=== PATIENT | female | born 1990 | race Two or more races ===

== ENCOUNTER 2022-11-14 19:25 | Emergency (ER) | payer MEDICAID, SELFPAY ==
[2022-11-14 19:30] VITALS: BP 121/73; PULSE 77; RESP 16; TEMP 37.3; O2SAT 100; BMI 27.5
--- NOTE | 2022-11-14 19:37 | ED.DENTAL1 ---
HPI - Dental/Oral General Chief complaint: Dental/Oral Stated complaint: DENTAL Time Seen by Provider: 11/14/22 19:34 Source: patient Mode of arrival: walk-in Limitations: no limitations History of Present Illness HPI Narrative: patient is a 31-year-old female who presents to the emergency department for increasing pain along the left jaw for the last several days. She states she has two broken teeth, tooth #12 and tooth #20. She filled tooth #20 with dental paste last night. She has not noticed any drainage from the teeth. She is regular smoker. She is not concerned for . She reports pain radiating into the left side of the jaw. She states she has had subjective fever and chills over the last two days. Related Data Home Medications Medication Instructions Recorded Confirmed dextroamphetamine-amphetamine 20 20 mg PO DAILY 11/14/22 11/14/22 mg tablet (Adderall) Previous Rx's Medication Instructions Recorded amoxicillin 500 mg capsule 500 mg PO TID 10 days #30 caps 11/14/22 ketorolac 10 mg tablet 10 mg PO TID PRN pain #10 tabs 11/14/22 Allergies Allergy/AdvReac Type Severity Reaction Status Date / Time No Known Drug Allergies Allergy Verified 11/14/22 19:33 Review of Systems ROS Constitutional Reports: fever and chills Ears, nose, mouth, and throat Denies: throat pain or neck pain Cardiovascular Denies: chest pain Respiratory Denies: shortness of breath or cough Gastrointestinal Denies: nausea or vomiting Musculoskeletal Denies: back pain or neck pain Integumentary/Breast Denies: rash Neurological Reports: headache PFSH PFSH Social History Smoking status: Former smoker Exam Narrative Exam Narrative: Gen.: Awake, alert, in no distress Head: Normocephalic, atraumatic ENT: Moist mucous membranes, dental caries of tooth #13 and tooth #20. White dental paste noted on the surface of tooth #20. No visible abscess, no trismus or drooling. No redness or swelling under the tongue. No mandibular maxillary swelling noted. Clear speech. Respiratory: No respiratory distress Extremities: Moves extremities equally, no injuries noted Psych: Normal mood and affect Neuro: No focal neuro deficit Skin: Warm, dry, intact Constitutional Vital Signs, click to edit/add: Last Vital Signs Temp 99.2 F 11/14/22 19:30 Pulse 77 11/14/22 19:30 Resp 16 11/14/22 19:30 BP 121/73 H 11/14/22 19:30 Pulse Ox 100 11/14/22 19:30 O2 Del Method Room Air 11/14/22 19:30 Course Vital Signs Vital signs: Vital Signs Temperature 99.2 F 11/14/22 19:30 Pulse Rate 77 11/14/22 19:30 Respiratory Rate 16 11/14/22 19:30 Blood Pressure 121/73 H 11/14/22 19:30 Pulse Oximetry 100 11/14/22 19:30 Oxygen Delivery Method Room Air 11/14/22 19:30 Temperature 99.2 F 11/14/22 19:30 Pulse Rate 77 11/14/22 19:30 Respiratory Rate 16 11/14/22 19:30 Blood Pressure 121/73 H 11/14/22 19:30 Pulse Oximetry 100 11/14/22 19:30 Oxygen Delivery Method Room Air 11/14/22 19:30 MDM - Dental/Oral MDM Narrative Medical decision making narrative: exam is consistent with dental caries and probable early infection by history. Patient started on amoxicillin, NSAIDs and topical analgesia. She is referred to a dental clinic. She states she recently moved from [place] so she has had difficulty getting into an office. Return to the Emergency Room if symptoms change or worsen. Medical Records Attestation: I reviewed the patient's medical records. Discharge Plan Discharge Chief Complaint: Dental/Oral Clinical Impression: Dental caries, Toothache Patient Disposition: Home, Self-Care Time of Disposition Decision: 19:43 Condition: Good Prescriptions / Home Meds: New amoxicillin 500 mg capsule 500 mg PO TID 10 Days Qty: 30 0RF ketorolac 10 mg tablet 10 mg PO TID PRN (Reason: pain) Qty: 10 0RF No Action dextroamphetamine-amphetamine [Adderall] 20 mg tablet 20 mg PO DAILY Instructions: Toothache (ED) Additional Instructions: [facility]: For an adult appointment (ages 18+), call [phone]. Stand Alone Forms: Portal Instructions Referrals: Physician,Non-Staff, MD [Primary Care Provider] - 1 week Discharge Date/Time: 11/14/22 20:24
[2022-11-14] MEDS: AMOXICILLIN 500 MG CAPSULE PO (20:08)
[2022-11-14] MEDS: BENZOCAINE 30 ML, lidocaine HCL 15 ML MM (20:08)
== END 2022-11-14 20:24 | disposition home or self-care (01) ==
PROVIDERS: Emergency Provider Emergency Medicine
DX: K02.9 Dental caries, unspecified (principal); K08.89 Other specified disorders of teeth and supporting structures; F17.210 Nicotine dependence, cigarettes, uncomplicated
CPT/HCPCS: 99283

== ENCOUNTER 2022-12-15 14:22 | Outpatient (OUT) | payer MEDICAID, SELFPAY ==
[2022-12-15 15:27] LABS: Basophils Absolute Auto 0.1 10^3/uL (0.0-0.1); Basophils Percent Auto 0.9 % (0.2-2.0); Eosinophils Absolute Auto 0.3 10^3/uL (0.0-0.7); Eosinophils Percent Auto 4.1 % (0.9-7.0); Hematocrit 40.4 % (36.0-48.0); Hemoglobin 13.2 g/dL (12.0-16.0); Immature Granulocytes Abs Auto 0.03 10^3/uL (0.00-0.03); Immature Granulocytes Pct Auto 0.4 % (0.0-0.5); Lymphocytes Absolute Auto 2.2 10^3/uL (1.2-3.8); Lymphocytes Percent Auto 27.4 % (20.5-60.0); Mean Corpuscular HGB Conc 32.7 g/dL (29.9-35.2); Mean Corpuscular Hemoglobin 31.4 pg (26.7-34.0); Mean Platelet Volume 10.4 fL (9.5-13.5); Monocytes Absolute Auto 0.6 10^3/uL (0.3-0.8); Monocytes Percent Auto 7.6 % (1.7-12.0); Neutrophils Absolute Auto 4.8 10^3/uL (1.4-6.5); Neutrophils Percent Auto 59.6 % (43.0-75.0); Platelet Count 258 10^3/uL (150-450); Red Blood Count 4.21 10^6/uL (4.20-5.40); Red Cell Distribution Width 12.1 % (11.0-15.0)
[2022-12-15 16:06] LABS: Alanine Aminotransferase 25 U/L (14-59); Albumin Globulin Ratio 0.9; Albumin Level 3.8 g/dL (3.4-5.0); Alkaline Phosphatase 61 U/L (46-116); Aspartate Amino Transferase 19 U/L (15-37); BUN Creatinine Ratio 15.3; Bilirubin Direct 0.1 mg/dL (0.0-0.2); Bilirubin Total 0.4 mg/dL (0.2-1.0); Carbon Dioxide 28.2 mmol/L (21.0-32.0); Chloride 103 mmol/L (98-107); Estimated GFR (African America >60 (>=60); Estimated GFR (Non-African Ame >60 (>=60); Glucose 94 mg/dL (74-106); Potassium 4.2 mmol/L (3.5-5.1); Sodium 137 mmol/L (136-145); Total Protein 7.8 g/dL (6.4-8.2)
[2022-12-17 06:09] LABS: HIV Ab/p24 Ag Screen Non Reactive (Non Reactive)
== END 2022-12-15 14:23 | disposition home or self-care (01) ==
DX: F11.20 Opioid dependence, uncomplicated (principal)
CPT/HCPCS: 36415; 80053; 80076; 85025; 87389

== ENCOUNTER 2022-12-15 14:29 | Outpatient (OUT) | payer MEDICAID, SELFPAY ==
[2022-12-15 15:59] LABS: Bilirubin Urine NEGATIVE (NEGATIVE); Blood Urine NEGATIVE (NEGATIVE); Clarity Urine CLEAR (CLEAR); Color Urine YELLOW (YELLOW); Glucose Urine UA NEGATIVE (NEGATIVE); Ketones Urine NEGATIVE (NEGATIVE); Leukocyte Esterase Urine NEGATIVE (NEGATIVE); Nitrite Urine POSITIVE (NEGATIVE); Protein Urine NEGATIVE (NEG/TRACE); Specific Gravity Urine 1.025 (1.005-1.025); Urobilinogen Urine 0.2 EU/dL (0.2-1.0)
[2022-12-15 16:00] LABS: Urine Microscopic Indicated YES
[2022-12-15 16:12] LABS: Bacteria Urine LARGE #/HPF (NONE SEEN); Crystals Seen? None Seen #/HPF (None Seen); Mucus Urine TRACE (NONE SEEN); RBC Urine 0-2 #/HPF (0-2); Squamous Epithelial Cell Urine FEW #/LPF (NONE/RARE); WBC Urine 0-2 #/HPF (NONE SEEN)
[2022-12-15 16:13] LABS: Cast Seen? NONE SEEN #/LPF (NONE SEEN); Urine Culture Indicated YES
[2022-12-15 16:16] LABS: Chol HDL Ratio 2.8; Cholesterol 132 mg/dL (<=200); HDL Cholesterol 48 mg/dL (40-60); LDL Cholesterol Calculated 69.2 mg/dL; Thyroid Stimulating Hormone 0.871 uIU/mL (0.358-3.740); Triglycerides 74 mg/dL (<=150); VLDL CHOLESTEROL 14.8 mg/dL
== END 2022-12-15 14:30 | disposition home or self-care (01) ==
LOC: LAB 14:30
DX: Z00.00 Encounter for general adult medical examination without abnormal findings (principal); E55.9 Vitamin D deficiency, unspecified; F32.9 Major depressive disorder, single episode, unspecified
CPT/HCPCS: 36415; 80053; 80061; 80076; 81001; 81003; 82306; 82607; 82746; 84443; 85025; 87086; 87150; 87186; 87389

== ENCOUNTER 2022-12-15 14:33 | Outpatient (RCR) | payer MEDICAID, SELFPAY | END 2023-01-06 17:49 | disposition home or self-care (01) | LOC: LAB 14:33 | DX: F11.20 Opioid dependence, uncomplicated (principal) | CPT/HCPCS: 36415; 80053; 80061; 80076; 80299; 80307; 80348; 81001; 81003; 82306; 82607; 82746; 84443; 85025; 87086; 87150; 87186; 87389 ==

== ENCOUNTER 2023-01-09 23:18 | Emergency (ER) | payer MEDICAID, SELFPAY ==
[2023-01-09 23:23] VITALS: BP 127/64; PULSE 69; RESP 18; TEMP 36.6; O2SAT 97; BMI 27.1
--- NOTE | 2023-01-09 23:50 | ED.DENTAL1 ---
HPI - Dental/Oral General Chief complaint: Dental/Oral Stated complaint: DENTAL PAIN Time Seen by Provider: 01/09/23 23:50 Source: patient Mode of arrival: walk-in Limitations: no limitations History of Present Illness HPI Narrative: Patient presents to emergency department complaining of dental pain. Patient states she has an infection to tooth #14. She states she has noted some swelling and pain that started yesterday. Symptoms have worsened since yesterday. She took Tylenol and Motrin 2 hours ago has not had any relief. She's had dental caries and has seen her dentist but not for this particular tooth. She denies any fever, chills, throat swelling, difficulty swallowing. She denies any headache. She denies any upper respiratory infection symptoms. She denies any chest pain, shortness of breath. Related Data Home Medications Medication Instructions Recorded Confirmed dextroamphetamine-amphetamine 20 20 mg PO DAILY 11/14/22 01/09/23 mg tablet (Adderall) buprenorphine 8 mg-naloxone 2 mg 1 tab sublingual DAILY 01/09/23 01/09/23 sublingual tablet lorazepam 1 mg tablet 1 mg PO DAILY PRN anxiety 01/09/23 01/09/23 Previous Rx's Medication Instructions Recorded clindamycin HCl 300 mg capsule 300 mg PO Q8H 10 days #30 caps 01/10/23 ibuprofen 800 mg tablet 800 mg PO Q8H PRN pain #20 tabs 01/10/23 Allergies Allergy/AdvReac Type Severity Reaction Status Date / Time No Known Drug Allergies Allergy Verified 01/09/23 23:29 Review of Systems ROS Status of ROS 10 or more systems reviewed and unremarkable except as noted in history and below [facility] Social History Smoking status: Current every day smoker Exam Narrative Exam Narrative: General: The patient is comfortable, alert and oriented x3, well appearing, non toxic in no apparent distress. Head: Atraumatic and normocephalic. Eyes: Normal conjunctiva ENT: The oropharynx is normal. No pharyngeal erythema, uvular edema, tonsillar exudates, asymmetry or trismus. Uvula is midline. Mouth is normal to inspection with the exception of a pain on percussion of the tooth #14 and evidence of dental caries. There is Small amount of left maxilla facial asymmetry, no drainable abscess. Floor of the mouth is soft. No tenderness in the submental or submandibular space. No tongue elevation or deviation. Airway is patent. Neck: The neck demonstrates normal range of motion. No meningeals signs are present. No stridor. No masses or lymphandenopathy noted. Respiratory: No acute distress, lungs are clear to auscultation, no wheezing, rhonchi, or rales noted. No stridor or retractions are noted. Cardiovascular: Regular rate and rhythm Skin: The skin exam shows no evidence of rashes Neuro: Alert and oriented x4, normal speech Lymphatic: No cervical lymphadenopathy Constitutional Vital Signs, click to edit/add: Last Vital Signs Temp 98 F 01/09/23 23:23 Pulse 69 01/09/23 23:23 Resp 18 01/09/23 23:23 BP 127/64 01/09/23 23:23 Pulse Ox 97 01/09/23 23:23 O2 Del Method Room Air 01/09/23 23:23 Course Vital Signs Vital signs: Vital Signs Temperature 98 F 01/09/23 23:23 Pulse Rate 69 01/09/23 23:23 Respiratory Rate 18 01/09/23 23:23 Blood Pressure 127/64 01/09/23 23:23 Pulse Oximetry 97 01/09/23 23:23 Oxygen Delivery Method Room Air 01/09/23 23:23 Temperature 98 F 01/09/23 23:23 Pulse Rate 69 01/09/23 23:23 Respiratory Rate 18 01/09/23 23:23 Blood Pressure 127/64 01/09/23 23:23 Pulse Oximetry 97 01/09/23 23:23 Oxygen Delivery Method Room Air 01/09/23 23:23 MDM - Dental/Oral MDM Narrative Medical decision making narrative: Patient started on clindamycin, and analgesics. Patient is nontoxic, will follow up with dentist. No additional indication for emergent studies at this time. I answered all questions. Discussed discharge instructions including standard anticipatory guidance and what should prompt a return to the emergency department, including if they get worse are not getting better or develops any new or concerning symptoms. I've given them specific time frame in which to follow-up, and who to follow-up with. The patient demonstrates understanding. Patient is nontoxic and stable for discharge with outpatient follow-up. This note was created with the assistance of a speech recognition program. Although the intention is to generate documents that actually reflects the content of the visit, no guarantees can be provided that every mistake has been identified and corrected by editing. Differential Diagnosis Differential diagnosis: Likely gingival abscess, dental caries, toothache and dental abscess Discharge Plan Discharge Chief Complaint: Dental/Oral Clinical Impression: Dental abscess Patient Disposition: Home, Self-Care Time of Disposition Decision: 00:13 Condition: Good Mode of Transportation: Private Vehicle Prescriptions / Home Meds: New clindamycin HCl 300 mg capsule 300 mg PO Q8H 10 Days Qty: 30 0RF ibuprofen 800 mg tablet 800 mg PO Q8H PRN (Reason: pain) Qty: 20 0RF No Action dextroamphetamine-amphetamine [Adderall] 20 mg tablet 20 mg PO DAILY lorazepam 1 mg tablet 1 mg PO DAILY PRN (Reason: anxiety) buprenorphine-naloxone 8-2 mg tablet, sublingual 1 tab SUBLINGUAL DAILY Instructions: Dental Abscess (ED) Additional Instructions: Follow-up with dentist Tuesday. Stand Alone Forms: Portal Instructions Discharge Date/Time: 01/10/23 00:50
[2023-01-10] MEDS: BENZOCAINE 30 ML, lidocaine HCL 15 ML MM (00:42)
[2023-01-10] MEDS: CLINDAMYCIN HCL 150 MG CAPSULE 450 MG PO (00:42)
== END 2023-01-10 00:50 | disposition home or self-care (01) ==
PROVIDERS: Emergency Provider Emergency Medicine
DX: K04.7 Periapical abscess without sinus (principal); Z79.899 Other long term (current) drug therapy; F17.210 Nicotine dependence, cigarettes, uncomplicated
CPT/HCPCS: 99283

== ENCOUNTER 2023-01-13 12:37 | Outpatient (RCR) | payer MEDICAID, SELFPAY ==
[2023-07-27 14:09] LABS: Miscellaneous Test NEGATIVE
== END 2023-02-07 08:31 | disposition home or self-care (01) ==
LOC: LAB 12:37
DX: F11.20 Opioid dependence, uncomplicated (principal)
CPT/HCPCS: 36415; 80299; 80307; 80348

== ENCOUNTER 2023-02-23 15:55 | Outpatient (OUT) | payer MEDICAID, SELFPAY | END 2023-02-23 15:56 | disposition home or self-care (01) | LOC: LAB 15:58 | DX: F11.20 Opioid dependence, uncomplicated (principal) | CPT/HCPCS: 36415; 80299; 80307; 80348 ==

== ENCOUNTER 2023-04-20 16:32 | Outpatient (OUT) | payer MEDICAID, SELFPAY | END 2023-04-20 16:33 | disposition home or self-care (01) | DX: F11.20 Opioid dependence, uncomplicated (principal) | CPT/HCPCS: 36415; 80299; 80307; 80348 ==

== ENCOUNTER 2023-06-21 12:19 | Outpatient (OUT) | payer MEDICAID, SELFPAY ==
[2023-06-21 13:50] LABS: Amphetamine Screen Urine NEGATIVE (NEGATIVE); Barbiturates Screen Urine NEGATIVE (NEGATIVE); Benzodiazepines Screen Urine NEGATIVE (NEGATIVE); Buprenorphine Screen Urine POSITIVE (NEGATIVE); Cannabinoid Screen Urine NEGATIVE (NEGATIVE); Cocaine Screen Urine NEGATIVE (NEGATIVE); Methadone Screen Urine NEGATIVE (NEGATIVE); Methamphetamines Screen Urine NEGATIVE (NEGATIVE); Opiate Screen Urine NEGATIVE (NEGATIVE); Oxycodone Screen Urine NEGATIVE (NEGATIVE); Phencyclidine Screen Urine NEGATIVE (NEGATIVE); Tricyclic Antidepressant Urine NEGATIVE (NEGATIVE)
== END 2023-06-21 12:20 | disposition home or self-care (01) ==
LOC: LAB 12:20
DX: F11.20 Opioid dependence, uncomplicated (principal)
CPT/HCPCS: 36415; 80307; 80375

== ENCOUNTER 2023-07-29 12:12 | Outpatient (OUT) | payer SELFPAY ==
[2023-07-29 13:45] LABS: Cannabinoid Screen Urine NEGATIVE (NEGATIVE); Phencyclidine Screen Urine NEGATIVE (NEGATIVE)
[2023-07-29 13:52] LABS: Amphetamine Screen Urine POSITIVE (NEGATIVE); Barbiturates Screen Urine NEGATIVE (NEGATIVE); Benzodiazepines Screen Urine POSITIVE (NEGATIVE); Buprenorphine Screen Urine POSITIVE (NEGATIVE); Cocaine Screen Urine NEGATIVE (NEGATIVE); Methadone Screen Urine NEGATIVE (NEGATIVE); Methamphetamines Screen Urine NEGATIVE (NEGATIVE); Opiate Screen Urine NEGATIVE (NEGATIVE); Oxycodone Screen Urine NEGATIVE (NEGATIVE); Tricyclic Antidepressant Urine NEGATIVE (NEGATIVE)
== END 2023-07-29 12:13 | disposition home or self-care (01) ==
DX: F11.20 Opioid dependence, uncomplicated (principal)
CPT/HCPCS: 36415; 80307; 80355; 80375

== ENCOUNTER 2023-09-25 20:05 | Emergency (ER) | payer SELFPAY ==
[2023-09-25 20:10] VITALS: BP 141/95; PULSE 82; TEMP 36.4; O2SAT 98; BMI 28.3
--- NOTE | 2023-09-25 20:21 | PC.NURSE ---
Pt has mild splotchy red rash on bilat upper arms and on back of neck. Airway remains intact.
--- NOTE | 2023-09-25 20:33 | ED.SKABFB1 ---
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 She loss her balance and fell back 5 days ago sustaining superficial cut to left palm. she has experienced episodes of itching on and off ever since. Tdaoy she developed swelling of both hands and redness of her arms. Took Benadryl and the swelling has decreased significantly and the redness has resolved. Still feels her hands are a little puffy but it is not apparent to me. Denies shortness of breath. mild pain of her hand. not sure of when she had her last tetanus Related Data Home Medications ?Medication ?Instructions ?Recorded ?Confirmed dextroamphetamine-amphetamine 20 20 mg PO DAILY 11/14/22 01/09/23 mg tablet (Adderall) buprenorphine 8 mg-naloxone 2 mg 1 tab sublingual DAILY 01/09/23 01/09/23 sublingual tablet lorazepam 1 mg tablet 1 mg PO DAILY PRN anxiety 01/09/23 01/09/23 Previous Rx's ?Medication ?Instructions ?Recorded clindamycin HCl 300 mg capsule 300 mg PO Q8H 10 days #30 caps 01/10/23 ibuprofen 800 mg tablet 800 mg PO Q8H PRN pain #20 tabs 01/10/23 Allergies Allergy/AdvReac Type Severity Reaction Status Date / Time No Known Drug Allergies Allergy Verified 09/25/23 20:15 Review of Systems ROS Status of ROS 10 or more systems reviewed and unremarkable except as noted in history and below PFSH PFS Social History Smoking status: Current every day smoker Exam Constitutional Vital Signs, click to edit/add: Last Vital Signs Temp 97.6 F 09/25/23 20:10 Pulse 82 09/25/23 20:10 Resp 18 09/25/23 20:10 BP 141/95 H 09/25/23 20:10 Pulse Ox 98 09/25/23 20:10 O2 Del Method Room Air 09/25/23 20:10 Common normals: no apparent distress, average body habitus, oriented x3, no limitations, healthy appearing, alert and well nourished [facility] Common normals: normocephalic and head/scalp atraumatic Eye Common normals: EOMs intact bilaterally and conjunctivae normal Respiratory Common normals: normal respiratory effort, no retractions, no use of accessory muscles and clear to auscultation bilaterally Cardio Common normals: regular rate, regular rhythm, S1 normal heart sound and S2 normal heart sound Extremity Other: superficial cut palm left hand. no surrounding erythema, drainage or red streaks skin is clear. No obvious rash Neuro Common normals: oriented x3, CN's II-XII intact bilaterally, moves all extremities and no focal motor deficits Psych Appearance: grossly normal Course Vital Signs Vital signs: Vital Signs Temperature 97.6 F 09/25/23 20:10 Pulse Rate 82 09/25/23 20:10 Respiratory Rate 18 09/25/23 20:10 Blood Pressure 141/95 H 09/25/23 20:10 Pulse Oximetry 98 09/25/23 20:10 Oxygen Delivery Method Room Air 09/25/23 20:10 Temperature 97.6 F 09/25/23 20:10 Pulse Rate 82 09/25/23 20:10 Respiratory Rate 18 09/25/23 20:10 Blood Pressure 141/95 H 09/25/23 20:10 Pulse Oximetry 98 09/25/23 20:10 Oxygen Delivery Method Room Air 09/25/23 20:10 MDM - Skin/Abscess/Foreign Bdy MDM Narrative Medical decision making narrative: patient sustained a superficial cut 5 days ago from a nail. Wound appears to be healing well. No sign of infection. Her history is c/w allergic reaction. She describes itching and development of swelling of her hands. She took benadryl and the swelling has resolved. Discussed plan of treatment for an allergic reaction. Given dose of prednisone and a tetanus in the department and discharged home Discharge Plan Discharge Stand Alone Forms: Portal Instructions Chief Complaint: Skin/Abscess/Foreign Body Clinical Impression: Hand laceration, Allergic reaction Patient Disposition: Home, Self-Care Prescriptions / Home Meds: No Action dextroamphetamine-amphetamine [Adderall] 20 mg tablet 20 mg PO DAILY lorazepam 1 mg tablet 1 mg PO DAILY PRN (Reason: anxiety) buprenorphine-naloxone 8-2 mg tablet, sublingual 1 tab SUBLINGUAL DAILY clindamycin HCl 300 mg capsule 300 mg PO Q8H 10 Days Qty: 30 0RF ibuprofen 800 mg tablet 800 mg PO Q8H PRN (Reason: pain) Qty: 20 0RF Print Language: Senegalese Instructions: General Allergic Reaction (ED), Laceration Without Closure (ED) Additional Instructions: continue with Benadryl. follow up with your doctor in 2-3 days for recheck Referrals: Physician,Non-Staff, MD [Primary Care Provider] - 1 week
[2023-09-25] MEDS: PREDNISONE 20 MG TABLET 60 MG PO (20:44)
[2023-09-25] MEDS: ADACEL DIPH,PERTUSS(ACELL),TET VAC/PF 0.5 ML ADULT SYRINGE IM (20:44)
[2023-09-25 20:52] VITALS: BP 135/79; PULSE 65; O2SAT 97
== END 2023-09-25 20:52 | disposition home or self-care (01) ==
PROVIDERS: Emergency Provider Internal Medicine
DX: S61.412A Laceration without foreign body of left hand, initial encounter (principal); T78.40XA Allergy, unspecified, initial encounter; Z23 Encounter for immunization; W45.0XXA Nail entering through skin, initial encounter; Z79.899 Other long term (current) drug therapy; F17.210 Nicotine dependence, cigarettes, uncomplicated
CPT/HCPCS: 90471; 90715; 99283

== ENCOUNTER 2023-10-04 16:53 | Outpatient (OUT) | payer SELFPAY ==
[2023-10-04 17:29] LABS: Amphetamine Screen Urine POSITIVE (NEGATIVE); Barbiturates Screen Urine NEGATIVE (NEGATIVE); Benzodiazepines Screen Urine POSITIVE (NEGATIVE); Buprenorphine Screen Urine POSITIVE (NEGATIVE); Cannabinoid Screen Urine NEGATIVE (NEGATIVE); Cocaine Screen Urine NEGATIVE (NEGATIVE); Methadone Screen Urine NEGATIVE (NEGATIVE); Methamphetamines Screen Urine NEGATIVE (NEGATIVE); Opiate Screen Urine NEGATIVE (NEGATIVE); Oxycodone Screen Urine NEGATIVE (NEGATIVE); Phencyclidine Screen Urine NEGATIVE (NEGATIVE); Tricyclic Antidepressant Urine NEGATIVE (NEGATIVE)
== END 2023-10-04 16:54 | disposition home or self-care (01) ==
DX: F11.20 Opioid dependence, uncomplicated (principal)
CPT/HCPCS: 36415; 80307; 80375

== ENCOUNTER 2023-11-29 15:51 | Outpatient (OUT) | payer BC, SELFPAY ==
[2023-11-29 17:34] LABS: Amphetamine Screen Urine POSITIVE (NEGATIVE); Barbiturates Screen Urine NEGATIVE (NEGATIVE); Benzodiazepines Screen Urine POSITIVE (NEGATIVE); Buprenorphine Screen Urine POSITIVE (NEGATIVE); Cannabinoid Screen Urine NEGATIVE (NEGATIVE); Cocaine Screen Urine NEGATIVE (NEGATIVE); Methadone Screen Urine NEGATIVE (NEGATIVE); Methamphetamines Screen Urine NEGATIVE (NEGATIVE); Opiate Screen Urine NEGATIVE (NEGATIVE); Oxycodone Screen Urine NEGATIVE (NEGATIVE); Phencyclidine Screen Urine NEGATIVE (NEGATIVE); Tricyclic Antidepressant Urine NEGATIVE (NEGATIVE)
== END 2023-11-29 15:52 | disposition home or self-care (01) ==
LOC: LAB 15:54
DX: F11.20 Opioid dependence, uncomplicated (principal)
CPT/HCPCS: 36415; 80307; 80375

== ENCOUNTER 2023-12-03 17:06 | Emergency (ER) | payer BC, SELFPAY ==
[2023-12-03 17:12] VITALS: BP 148/83; PULSE 88; TEMP 36.9; O2SAT 98; BMI 28.3
--- OUTSIDE RECORDS SUMMARY | 2023-12-03 17:16 | XMS_ITS ---
Patient Summarization (C-CDA 2.1 CCD) Created on: December 03, 2023 Marleni Smith : 1990 Sex: Female Author Organization Sample organization Encounters Encounter Date Encounter Type Care Provider Facility Start: 12-02-2023 End: 12-02-2023 ambulatory [facility] Work Phone: Start: 12-02-2023 End: 12-02-2023 Patient encounter procedure [facility] Work Phone: Medications Current Medications Medication Drug Class(es) Dates Sig (Normalized) Sig (Original) ALPRAZolam 0.5 mg oral tablet (1 source) Benzodiazepine Start: 12-02-2023 Alprazolam Active MG PO December 02, 2023 12:00am amphetamine aspartate 5 mg / amphetamine sulfate 5 mg / dextroamphetamine saccharate 5 mg / dextroamphetamine sulfate 5 mg oral tablet (1 source) Central Nervous System Stimulant Start: 12-02-2023 Dextroamphetami ne-Amphetamine Active PO December 02, 2023 12:00am buprenorphine 8 mg / naloxone 2 mg sublingual tablet (1 source) Partial Opioid Agonist, Opioid Antagonist Start: 12-02-2023 Buprenorphine-N aloxone Active TAB SUBLINGUAL December 02, 2023 12:00am predniSONE 10 mg oral tablet (1 source) Start: 12-02-2023 Prednisone Active 10 MG PO As Directed 21 December 02, 2023 12:00am 4 tablets x 3 days, 2 tablets x 3 days, 1 tablet x 3 days Payers Date Payer Category Payer Policy ID Unknown Mirtha MOTA/VLAD [id number] Social History Date Type Detail Facility Start: 1990 Sex Assigned At Female F [facility] Tobacco smoking stat NHIS Unknown if ever smoked [facility] Work Phone: Vital Signs Date Time Vital Sign Value Performing Clinician Faci lity 12-02-2023 16:34-0400 Body height 162.56 cm [facility] 12-02-2023 16:34-0400 Body mass index (BMI) [Ratio] 28.4 kg/m2 [facility] 12-02-2023 16:34-0400 Body temperature 98.2 [degF] [facility] 12-02-2023 16:34-0400 Body weight 75.06 kg [facility] 12-02-2023 16:34-0400 Diastolic blood pressure 79 mm[Hg] [facility] 12-02-2023 16:34-0400 Heart rate 73 /min [facility] 12-02-2023 16:34-0400 Respiratory rate 18 /min [facility] 12-02-2023 16:34-0400 SaO2% (BldA) [Mass fraction] 99 % [facility] 12-02-2023 16:34-0400 Systolic blood pressure 122 mm[Hg] [facility] Evaluation note Note Date & Type Note Facility Evaluation note No assessment information availa [facility] Work Phone: Chief Complaint and Reason for Visit Chief Complaint rash Advance Directives Advance Directive Response Recorded Date/ Time Advance Directives No December 01 4:20pm Additional Source Comments Care Teams (unrecognized sec tion and content) Team Status: Active Member Role Status Dates PHYSICIAN NO FAMILY Primary Care Provider Active Team Status: Inactive Member Role Status Dates Milly Dominique APRN Attending Provider Active Start: December 02, 2023 End: December 02, 2023 PHYSICIAN NO FAMILY Primary Care Provider Active Start: December 02, 2023 End: December 02, 2023 Goals (unrecognized section and content) Goals may be documented in a n alternate section FOR RECORDS PERTAINING TO PATIENTS WHO ARE OR HAVE BEEN ENROLLED IN A CHEMICAL DEPENDENCY/SUBSTANCEABUSE PROGRAM, SOME INFORMATION MAY BE OMITTED. This clinical summary was aggregated from multiple sources. Caution should be exercised in using it in the provision of clinical care. This summary normalizes information from multiple sources, and as a consequence, information in this document may materially change the coding, format and clinical context of patient data. In addition, data may be omitted in some cases. CLINICAL DECISIONS SHOULD BE BASED ON THE PRIMARY CLINICAL RECORDS. [facility] [employer] [facility]. provides no warranty or guarantee of the accuracy or completeness of information in this document.
--- NOTE | 2023-12-03 17:21 | PC.NURSE ---
Rash to upper body. pt states cleaned a home with a dog that had known mites.
--- NOTE | 2023-12-03 17:31 | ED_ITS ---
HPI - Skin/Abscess/Foreign Bdy General Chief complaint: Skin/Abscess/Foreign Body Stated complaint: SKIN RASH Time Seen by Provider: 12/03/23 17:10 Source: patient Mode of arrival: walk-in Limitations: no limitations History of Present Illness HPI narrative: 32-year-old female presents for rash. She has had this for several days and she thinks were likely insect bites. She went to an urgent care and they gave her a shot and they prescribed a tapering dose of prednisone starting at 40 mg. She has not been using a cream. Her sleeping partner does not have the same problem. She has been using a surgical tape to cover it up. Related Data Home Medications ?Medication ?Instructions ?Recorded ?Confirmed dextroamphetamine-amphetamine 20 20 mg PO DAILY 11/14/22 12/03/23 mg tablet (Adderall) buprenorphine 8 mg-naloxone 2 mg 1 tab sublingual DAILY 01/09/23 12/03/23 sublingual tablet Previous Rx's ?Medication ?Instructions ?Recorded hydroxyzine HCl 25 mg tablet 25 mg PO Q6H PRN itching #20 tabs 12/03/23 triamcinolone acetonide 0.1 % 1 applic topical BID #80 grams 12/03/23 topical cream Allergies Allergy/AdvReac Type Severity Reaction Status Date / Time No Known Drug Allergies Allergy Verified 09/25/23 20:15 Review of Systems ROS Narrative A ten point review of systems is negative except as noted above. PFSH [facility] Social History Smoking status: Current every day smoker Exam Narrative Exam Narrative: Nurses note and vital signs reviewed and patient is not hypoxic. General: The patient appears well and in no apparent distress. Patient is resting comfortably on cart. Skin: Warm, dry, no pallor noted. There is an erythematous raised rash scattered on various areas of her body but primarily the extremities. No pustules or blisters are present Head: Normocephalic, atraumatic Eye: Normal conjunctiva, no drainage Ears, Nose, Mouth, and Throat: oral mucosa is moist. Nares patent. Cardiovascular: Regular Rate and Rhythm Respiratory: Patient is in no distress, no accessory muscle use Back: non-tender GI: Nontender Musculoskeletal: No joint swelling Neurological: A&O, normal speech Psychiatric: Cooperative Constitutional Vital Signs, click to edit/add: Last Vital Signs Temp 98.5 F 12/03/23 17:12 Pulse 88 12/03/23 17:12 Resp 18 12/03/23 17:12 BP 148/83 H 12/03/23 17:12 Pulse Ox 98 12/03/23 17:12 O2 Del Method Room Air 12/03/23 17:12 Course Vital Signs Vital signs: Vital Signs Temperature 98.5 F 12/03/23 17:12 Pulse Rate 88 12/03/23 17:12 Respiratory Rate 18 12/03/23 17:12 Blood Pressure 148/83 H 12/03/23 17:12 Pulse Oximetry 98 12/03/23 17:12 Oxygen Delivery Method Room Air 12/03/23 17:12 Temperature 98.5 F 12/03/23 17:12 Pulse Rate 88 12/03/23 17:12 Respiratory Rate 18 12/03/23 17:12 Blood Pressure 148/83 H 12/03/23 17:12 Pulse Oximetry 98 12/03/23 17:12 Oxygen Delivery Method Room Air 12/03/23 17:12 MDM - Skin/Abscess/Foreign Bdy MDM Narrative Medical decision making narrative: The rash has the appearance of insect bites. I doubt bedbugs because her sleeping partner does not have any of this rash. She was given IM Solu-Medrol and she will continue the prednisone. She was advised not to use the tape and she was prescribed Atarax and Kenalog cream. Treatment diagnosis and follow-up were discussed with the patient. Differential Diagnosis Differential diagnosis: Likely urticaria, cellulitis and insect bites Discharge Plan Discharge Stand Alone Forms: Portal Instructions Chief Complaint: Skin/Abscess/Foreign Body Clinical Impression: Insect bites Patient Disposition: Home, Self-Care Time of Disposition Decision: 17:28 Condition: Good Mode of Transportation: Private Vehicle Prescriptions / Home Meds: New hydroxyzine HCl 25 mg tablet 25 mg PO Q6H PRN (Reason: itching) Qty: 20 0RF triamcinolone acetonide 0.1 % cream 1 applic topical BID Qty: 80 0RF No Action dextroamphetamine-amphetamine [Adderall] 20 mg tablet 20 mg PO DAILY buprenorphine-naloxone 8-2 mg tablet, sublingual 1 tab SUBLINGUAL DAILY Print Language: Tanzanian Instructions: Insect Bite or Sting (ED) Referrals: Physician,Non-Staff, MD [Primary Care Provider] - 1 week
[2023-12-03] MEDS: METHYLPREDNISOLONE SOD SUCC PF 125 MG/2 ML VIAL 250 MG IM (17:39)
== END 2023-12-03 17:45 | disposition home or self-care (01) ==
PROVIDERS: Emergency Provider Emergency Medicine
DX: T14.8XXA Other injury of unspecified body region, initial encounter (principal); W57.XXXA Bitten or stung by nonvenomous insect and other nonvenomous arthropods, initial encounter; F17.210 Nicotine dependence, cigarettes, uncomplicated
CPT/HCPCS: 96372; 99284; J2919

== ENCOUNTER 2024-05-24 20:46 | Emergency (ER) | payer BC, SELFPAY ==
--- OUTSIDE RECORDS SUMMARY | 2024-05-24 20:52 | XMS_ITS | CCD ---
Author Organization [facility] [employer] [facility] Medications Current Medications Medication Drug Class(es) Dates [...] Prednisone Active 10 MG PO As Directed 27 01December 02, 2023 12:00am 4 tablets x 3 days, 2 tablets x 3 days, 1 tablet x 3 days Vital Signs Date Time Vital Sign Value Performing Clinician José Luisi yefri 12-02-2023 16:34-0400 Body height 162.56 cm [facility] 12-02-2023 16:34-0400 Body mass index (BMI) [Ratio] 28.4 kg/m2 [facility] 12-02-2023 16:34-0400 Body temperature 98.2 [degF] [facility] 12-02-2023 16:34-0400 Body weight 75.06 kg [facility] 12-02-2023 16:34-0400 Diastolic blood pressure 79 mm[Hg] [facility] 12-02-2023 16:34-0400 Heart rate 73 /min [facility] 12-02-2023 16:34-0400 Respiratory rate 18 /min [facility] 12-02-2023 16:34-0400 SaO2% (BldA) [Mass fraction] 99 % [facility] 12-02-2023 16:34-0400 Systolic blood pressure 122 mm[Hg] [facility] Encounters Encounter Date Encounter Type Care Provider Facility Start: 12-02-2023 End: 12-02-2023 ambulatory [facility] Work Phone: Start: 12-02-2023 End: 12-02-2023 Patient encounter procedure [facility] Work Phone: Payers Date Payer Category Payer Policy ID Unknown [place] SVETLANA/VLAD [id number] [id number] Social History Date Type Detail Facility [facility] Work Phone: Start: 1990 Sex Assigned At Female [facility] Evaluation note Note Date & Type Note Facility Evaluation note No assessment information availa ble [facility] Work Phone: Chief Complaint and Reason [...] BE BASED ON THE PRIMARY CLINICAL RECORDS. [facility]. provides no warranty or guarantee of the accuracy or completeness of information in this document.
[2024-05-24 21:02] VITALS: BP 130/80; PULSE 83; TEMP 36.8; O2SAT 99; BMI 25.7
--- NOTE | 2024-05-24 21:43 | ED_ITS ---
HPI HPI - Extremity Injury (Upper) General Chief Complaint: Extremity Injury, Upper Stated Complaint: UPPER RIGHT EXTREMITY PAIN Time Seen by Provider: 05/24/24 21:12 Source: patient Mode of arrival: walk-in Limitations: no limitations History of Present Illness HPI narrative: Patient is a 33-year-old female presents to the emergency department for a 1 day history of swelling to the cuticle area of the left index finger. She states she squeezed it earlier and yellow purulence was expressed. She is concerned because the area is still sore and swollen. She has no concern for . No medications prior to arrival. Related Data Home Medications ?Medication ?Instructions ?Recorded ?Confirmed dextroamphetamine-amphetamine 20 20 mg PO DAILY 11/14/22 05/24/24 mg tablet (Adderall) buprenorphine 8 mg-naloxone 2 mg 1 tab sublingual DAILY 01/09/23 05/24/24 sublingual tablet Previous Rx's ?Medication ?Instructions ?Recorded hydroxyzine HCl 25 mg tablet 25 mg PO Q6H PRN itching #20 tabs 12/03/23 triamcinolone acetonide 0.1 % 1 applic topical BID #80 grams 12/03/23 topical cream cephalexin 500 mg capsule 500 mg PO Q8H 7 days #21 caps 05/24/24 Allergies Allergy/AdvReac Type Severity Reaction Status Date / Time No Known Drug Allergies Allergy Verified 05/24/24 21:06 Opioid HPI Opioid Management Most Recent Pain and Opioid Data: Ur Phencyclidine Scrn Negative (NEGATIVE) 11/29/23 16:05 11/07 07/30 Review of Systems ROS Constitutional Denies: fever or chills Ears, nose, mouth, and throat Denies: throat pain or nasal congestion Respiratory Denies: cough Gastrointestinal Denies: nausea or vomiting Integumentary/Breast Denies: rash Neurological Denies: numbness in extremities or weakness in extremities Hematologic/Lymphatic Denies: easy bruising or easy bleeding PFSH PFSH Social History Smoking status: Current every day smoker Little interest or pleasure in doing things: not at all Feeling down, depressed, or hopeless: not at all Exam Narrative Exam Narrative: Gen.: Awake, alert, in no distress Head: Normocephalic, atraumatic ENT: Moist mucous membranes Respiratory: No respiratory distress Extremities: Swelling noted to the radial aspect of the fingernail bed of the left index finger, no significant redness noted. No swelling or redness of the fat pad of the distal phalanx. No fluctuance or purulence noted Psych: Normal mood and affect Neuro: No focal neuro deficit Skin: Warm, dry, intact Constitutional Vital Signs, click to edit/add: Last Vital Signs Temp 98.3 F 05/24/24 21:02 Pulse 83 05/24/24 21:02 Resp 18 05/24/24 21:02 BP 130/80 05/24/24 21:02 Pulse Ox 99 05/24/24 21:02 O2 Del Method Room Air 05/24/24 21:02 Course Vital Signs Vital signs: Vital Signs Temperature 98.3 F 05/24/24 21:02 Pulse Rate 83 05/24/24 21:02 Respiratory Rate 18 05/24/24 21:02 Blood Pressure 130/80 05/24/24 21:02 Pulse Oximetry 99 05/24/24 21:02 Oxygen Delivery Method Room Air 05/24/24 21:02 Temperature 98.3 F 05/24/24 21:02 Pulse Rate 83 05/24/24 21:02 Respiratory Rate 18 05/24/24 21:02 Blood Pressure 130/80 05/24/24 21:02 Pulse Oximetry 99 05/24/24 21:02 Oxygen Delivery Method Room Air 05/24/24 21:02 MDM - Extremity Injury (Upper) MDM Narrative Medical decision making narrative: Exam is consistent with paronychia, drained prior to arrival. Patient placed on Keflex as a precaution due to finger swelling and pain. Follow-up PCP and return to the ER if symptoms change or worsen continue warm soaks, patient cautioned against attempting to open the area at home. SUPERVISED APC VISIT, PHYSICIAN ATTESTATION: Based on the medical record the care appears appropriate. ? Medical Records Attestation: I reviewed the patient's medical records. Discharge Plan Discharge Chief Complaint: Extremity Injury, Upper Clinical Impression: Paronychia Patient Disposition: Home, Self-Care Time of Disposition Decision: 21:42 Condition: Good Prescriptions / Home Meds: New cephalexin 500 mg capsule 500 mg PO Q8H 7 Days Qty: 21 0RF No Action dextroamphetamine-amphetamine [Adderall] 20 mg tablet 20 mg PO DAILY buprenorphine-naloxone 8-2 mg tablet, sublingual 1 tab SUBLINGUAL DAILY hydroxyzine HCl 25 mg tablet 25 mg PO Q6H PRN (Reason: itching) Qty: 20 0RF triamcinolone acetonide 0.1 % cream 1 applic topical BID Qty: 80 0RF Print Language: Albanian Instructions: Paronychia (ED) Referrals: Physician,Non-Staff, MD [Primary Care Provider] - 1 week
[2024-05-24] MEDS: CEPHALEXIN 500 MG CAPSULE PO (21:55)
[2024-05-24 21:58] VITALS: BP 130/78; PULSE 80; O2SAT 99
== END 2024-05-24 21:58 | disposition home or self-care (01) ==
PROVIDERS: Emergency Provider Student in an Organized Health Care Education/Training Program
DX: L03.012 Cellulitis of left finger (principal); F17.200 Nicotine dependence, unspecified, uncomplicated
CPT/HCPCS: 99283